=== PATIENT | male | born 1945 | race Caucasian/White ===

== ENCOUNTER 2023-03-30 09:06 | Outpatient (OUT) | payer MEDICARE, SELFPAY ==
[2023-03-30 09:52] LABS: Basophils Percent Auto 0.3 % (0.2-2.0); Eosinophils Absolute Auto 0.2 10^3/uL (0.0-0.7); Eosinophils Percent Auto 2.4 % (0.9-7.0); Hematocrit 42.3 % (42.0-54.0); Hemoglobin 14.1 g/dL (14.0-18.0); Immature Granulocytes Abs Auto 0.03 10^3/uL (0.00-0.03); Immature Granulocytes Pct Auto 0.5 % (0.0-0.5); Lymphocytes Absolute Auto 1.4 10^3/uL (1.2-3.8); Lymphocytes Percent Auto 21.5 % (20.5-60.0); Mean Corpuscular HGB Conc 33.3 g/dL (29.9-35.2); Mean Corpuscular Hemoglobin 29.9 pg (25.9-34.0); Mean Corpuscular Volume 89.6 fL (80.0-94.0); Mean Platelet Volume 11.1 fL (9.5-13.5); Monocytes Absolute Auto 0.5 10^3/uL (0.3-0.8); Monocytes Percent Auto 7.9 % (1.7-12.0); Neutrophils Absolute Auto 4.5 10^3/uL (1.4-6.5); Neutrophils Percent Auto 67.4 % (43.0-75.0); Platelet Count 193 10^3/uL (150-450); Red Blood Count 4.72 10^6/uL (4.70-6.10); Red Cell Distribution Width 13.5 % (11.0-15.0); White Blood Count 6.6 10^3/uL (4.0-11.0)
[2023-03-30 11:12] LABS: Alanine Aminotransferase 22 U/L (16-63); Albumin Level 3.9 g/dL (3.4-5.0); Alkaline Phosphatase 85 U/L (46-116); Anion Gap 11.2; Aspartate Amino Transferase 14 U/L (15-37); BUN Creatinine Ratio 21.3; Bilirubin Total 0.3 mg/dL (0.2-1.0); Carbon Dioxide 29.3 mmol/L (21.0-32.0); Chloride 102 mmol/L (98-107); Estimated GFR (African America >60 (>=60); Estimated GFR (Non-African Ame 58 (>=60); Globulin 4.1 g/dL; Glucose 95 mg/dL (74-106); Potassium 4.5 mmol/L (3.5-5.1); Sodium 138 mmol/L (136-145)
[2023-03-30 11:20] LABS: Chol HDL Ratio 3.8; Cholesterol 197 mg/dL (<=200); HDL Cholesterol 52 mg/dL (40-60); LDL Cholesterol Calculated 120.2 mg/dL; Thyroid Stimulating Hormone 1.758 uIU/mL (0.358-3.740); Triglycerides 124 mg/dL (<=150); VLDL CHOLESTEROL 24.8 mg/dL
[2023-03-31 04:12] LABS: PSA, Free <0.02 ng/mL; Prostate Specific Ag <0.1 ng/mL (0.0-4.0)
== END 2023-03-30 09:07 ==
DX: E78.5 Hyperlipidemia, unspecified (principal); Z85.46 Personal history of malignant neoplasm of prostate
CPT/HCPCS: 36415; 80053; 80061; 84153; 84154; 84443; 85025

== ENCOUNTER 2023-04-06 09:43 | Outpatient (OUT) | payer MEDICARE, SELFPAY ==
--- NOTE | 2023-04-06 10:04 | ECG_ITS ---
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
== END 2023-04-06 09:44 | disposition home or self-care (01) ==
LOC: PST 09:44
DX: Z01.810 Encounter for preprocedural cardiovascular examination (principal); K40.91 Unilateral inguinal hernia, without obstruction or gangrene, recurrent
CPT/HCPCS: 93005

== ENCOUNTER 2023-04-11 07:21 | Day surgery (SDC) | payer MEDICARE, SELFPAY ==
[2023-04-06 10:31] VITALS: BP 129/78; PULSE 69; RESP 14; TEMP 36.6; O2SAT 97; BMI 22.1
[2023-04-11] VITALS (11 sets, daily range): BP systolic 108–140; BP diastolic 66–87; PULSE 68–75; RESP 10–26; TEMP 35.8–36.3; O2SAT 97–100; BMI 21.8
[2023-04-11 07:45] LABS: Glucometer 91 mg/dL (74-106)
[2023-04-11] MEDS: LACTATED RINGER'S SOLUTION 1,000 ML 50 ML IV (08:04)
[2023-04-11] MEDS: CEFAZOLIN SODIUM/DEXTROSE,ISO 2 GM/50 ML PIGGYBACK IV (08:31)
[2023-04-11] MEDS: BUPIVACAINE HCL 0.25% PF 25 MG/10 ML VIAL INJ ×2 (08:52→09:09)
--- NOTE | 2023-04-11 10:28 | P.GSPRC_ITS ---
Date of procedure: 04/11/23 Indications for Procedure: Patient is a 77-year-old male who was seen recently for an apparent recurrent left inguinal hernia. Following evaluation robotic repair of the recurrent left inguinal hernia was recommended. The risks benefits options and potential complications of the procedure were discussed in detail with the patient agreed to proceed and consent was signed. Pre-op diagnosis: recurrent left Inguinal hernia Post-op diagnosis: same Procedure: Robotic repair of # inguinal hernia with mesh Anesthesia: HOLLIEA Surgeon: Barrett Duarte Procedure Summary: Patient was brought to the operating room and placed in the supine position. Gen. anesthesia was induced the patient was intubated. The abdomen is prepped in sterile fashion. Anesthesia performed a regional block. Abdomen is then again prepped and draped in sterile fashion. following local anesthesia a small incision was made in the left upper abdomen. with laparoscopic guidance an 8 mm robotic trocar was placed through this incision and advanced into the peritoneal cavity. The abdomen is then insufflated to 15 mmHg of carbon dioxide. The camera was introduced and safe port site entry confirmed. Two additional 8 mm robotic ports were placed one in the right lateral abdomen and one just superior to the umbilicus following local anesthesia under direct visualization. The patient was then placed in Trendelenburg position. At this time the da Echo XI was brought to the field. All ports were docked and instruments introduced in standard fashion. At this time I left the operating table and attended the surgeon's counselor education professor. The left inguinal hernia was readily identified. No hernia was seen on the right. The peritoneum was incised above the defect from the midline extending to the left lateral abdomen. The peritoneal flap was then created with electrocautery as well as blunt and sharp dissection. A relatively large hernia sac was identified. With a combination of the traction as well as cautery and sharp dissection the sac was freed from the associated cord structures and completely reduced to the level of the peritoneum. Ari's ligament was then identified also. The pre-peritoneal space was then further expanded to allow mesh placement. A 15 cm x 9 cm progrip mesh was then introduced into the peritoneal cavity. This was placed in the preperitoneal space and unfolded and flattened with excellent coverage of the hernia defect as well as other potential sites for defects. Hemostasis was noted. The peritoneal defect was then closed with a running suture of 3-0V LOC. No other abnormalities were noted. The da Echo XI was then undocked and the abdomen desufflated with removal of the ports. Incisions were closed with subcuticular sutures of 4-0 Vicryl. Sponge needle and instrument counts were correct at the end of the procedure. The patient tolerated the procedure well and was transferred to the recovery area in stable condition. Estimated blood loss (mL): 5 Specimens: None Complications: No
[2023-04-11] MEDS: HYDROCODONE/ACETAMINOPHEN 5-325 MG TABLET 1 TAB PO (11:16)
== END 2023-04-11 12:00 | disposition home or self-care (01) ==
PROVIDERS: Visit Provider Surgery
PROC: (CPT 49651; principal; 2023-04-11 08:30)
DX: K40.91 Unilateral inguinal hernia, without obstruction or gangrene, recurrent (principal); Z87.442 Personal history of urinary calculi; E78.5 Hyperlipidemia, unspecified; Z85.828 Personal history of other malignant neoplasm of skin; Z85.46 Personal history of malignant neoplasm of prostate; Z87.891 Personal history of nicotine dependence; Z79.82 Long term (current) use of aspirin; Z79.899 Other long term (current) drug therapy; Z79.84 Long term (current) use of oral hypoglycemic drugs
CPT/HCPCS: 49651; 36415; 82948; C1781; J2704

== ENCOUNTER 2023-05-15 07:48 | Outpatient (OUT) | payer MEDICARE, SELFPAY ==
[2023-05-15 09:01] LABS: Prostate Specific Antigen Dx <0.13 ng/mL (<=4.00)
== END 2023-05-15 07:49 | disposition home or self-care (01) ==
LOC: LAB 07:51
DX: C61 Malignant neoplasm of prostate (principal)
CPT/HCPCS: 36415; 84153